=== PATIENT | male | born 1950 | race Caucasian/White ===

== ENCOUNTER 2016-08-27 10:01 | Day surgery (SDC) | payer MEDICARE, BC ==
--- NOTE | ~2016-08-27 | EGD ---
EGD REPORT [facility] [address] [address] NAME: MIGUELITO JONES : [birth year] STATUS : REG [facility]#: [id number] AGE: 66 ADM/REG DATE : 08/27/16 MR#: [id number] REPORT SERV DATE: 08/27/16 DICTATED BY: DATE: REPORT STATUS : Draft TRANSCRIBED BY: [employer] DATE: 08/27/16 Endoscopy Center Patient Name: Miguelito Jones Date of : 1950 Attending MD: DEIDRE ANDERSON MD Procedure Date No Time: 08/27/2016 Procedure: Upper GI endoscopy Indications: Iron deficiency anemia Referring MD: MARIA LUZ ALMANZAR MD Medicines: Monitored Anesthesia Care Complications: No immediate complications. Procedure: Pre-Anesthesia Assessment: - ASA Grade Assessment: III - A patient with severe systemic disease. After obtaining informed consent, the endoscope was passed under direct vision. Throughout the procedure, the patient's blood pressure, pulse, and oxygen saturations were monitored continuously. The GIF H190 [id number] was introduced through the mouth, and advanced to the third part of duodenum. The upper GI endoscopy was accomplished without difficulty. The patient tolerated the procedure well. Findings: The examined esophagus was mildly tortuous. There is no endoscopic evidence of Small's esophagus, areas of erosion, hiatus hernia, ulcerations or varices in the entire esophagus. Localized moderate inflammation characterized by erosions was found in the gastric antrum. Biopsies were taken with a cold forceps for histology. No other significant abnormalities were identified in a careful examination of the stomach. There is no endoscopic evidence of ulceration, varices or mass in the entire examined stomach. The examined duodenum was normal. Biopsies were taken with a cold forceps for histology. There is no endoscopic evidence of mucosal abnormalities, ulceration or angioectasia in the entire examined duodenum. The cardia and gastric fundus were normal on retroflexion. Impression: - Tortuous esophagus. - Acute gastritis. Biopsied. - Normal examined duodenum. Biopsied. Recommendation: - Patient has a contact number available for EGD REPORT [address] [address] NAME: MIGUELITO JONES : [birth year] STATUS : REG [facility]#: [id number] AGE: 66 ADM/REG DATE : 08/27/16 MR#: [id number] REPORT SERV DATE: 08/27/16 DICTATED BY: DATE: REPORT STATUS : Draft TRANSCRIBED BY: [employer] DATE: 08/27/16 emergencies. The signs and symptoms of potential delayed complications were discussed with the patient. Return to normal activities tomorrow. Written discharge instructions were provided to the patient. - Regular diet. - Discharge patient to home. - Use Protonix (pantoprazole) 40 mg PO daily for 8 weeks. - Avoid or minimize NSAID and Aspirin. If these must be continued, will likely need to continue pantoprazole. - Await pathology results. Procedure Code(s): --- Professional --- 18653, Esophagogastroduodenoscopy, flexible, transoral; with biopsy, single or multiple Diagnosis Code(s): --- Professional --- Q39.9, Congenital malformation of esophagus, unspecified K29.00, Acute gastritis without bleeding D50.9, Iron deficiency anemia, unspecified CPT copyright 2013 [employer]. All rights reserved. The codes documented in this report are preliminary and upon orthopedic coder review may be revised to meet current compliance requirements. DEIDRE ANDERSON MD 08/27/2016 12:20 PM This report has been signed electronically. Number of Addenda: 0 Note Initiated On: 08/27/2016 12:06 PM Scope Withdrawal Time 0 hours 0 minutes 0 seconds [address] [id number]
--- NOTE | ~2016-08-27 | EGD ---
EGD REPORT [facility] [address] [address] NAME: MIGUELITO JONES : [birth year] STATUS : REG [facility]#: [id number] AGE: 66 ADM/REG DATE : 08/27/16 MR#: [id number] REPORT SERV DATE: 08/27/16 DICTATED BY: DATE: REPORT STATUS : Draft [facility]: [facility] DATE: 08/27/16 [facility]oscopy [facility] Patient Name: Miguelito Jones Date of : 1950 Attending MD: DEIDRE ANDERSON MD Procedure Date No Time: 08/27/2016 Procedure: Colonoscopy Indications: Iron deficiency anemia Referring MD: MARIA LUZ ALMANZAR MD Medicines: Monitored Anesthesia Care Complications: No immediate complications. Procedure: Pre-Anesthesia Assessment: - ASA Grade Assessment: III - A patient with severe systemic disease. After I obtained informed consent, the scope was passed under direct vision. Throughout the procedure, the patient's blood pressure, pulse, and oxygen saturations were monitored continuously. The PCF [id number] was introduced through the anus and advanced to the cecum, identified by appendiceal orifice and ileocecal valve. The colonoscopy was performed without difficulty. The patient tolerated the procedure well. The quality of the bowel preparation was good. Findings: The perianal and digital rectal examinations were normal. Two sessile polyps were found in the ascending colon. The polyps were diminutive in size. These polyps were removed with a cold biopsy forceps. Resection and retrieval were complete. No other significant abnormalities were identified in a careful examination of the remainder of the colon. There is no endoscopic evidence of diverticula, mass, ulcerations or angioectasia in the entire colon. No additional abnormalities were found on retroflexion. Impression: - Two diminutive polyps in the ascending colon. Resected and retrieved. Recommendation: - Patient has a contact number available for emergencies. The signs and symptoms of potential delayed complications were discussed with the patient. Return to normal activities tomorrow. Written discharge instructions were provided to the patient. - Return to previous diet. - Discharge patient to home. EGD REPORT [facility] [address] [address] NAME: MIGUELITO JONES : [birth year] STATUS : REG [facility]#: [id number] AGE: 66 ADM/REG DATE : 08/27/16 MR#: [id number] REPORT SERV DATE: 08/27/16 DICTATED BY: DATE: REPORT STATUS : Draft TRANSCRIBED BY: [employer] DATE: 08/27/16 - Continue present medications. - Await pathology results. - Repeat colonoscopy in 5 years for surveillance based on pathology results. Procedure Code(s): --- Professional --- 37613, Colonoscopy, flexible, proximal to splenic flexure; with biopsy, single or multiple Diagnosis Code(s): --- Professional --- D12.2, Benign neoplasm of ascending colon D50.9, Iron deficiency anemia, unspecified CPT copyright 2013 [employer]. All rights reserved. The codes documented in this report are preliminary and upon roll clamp operator review may be revised to meet current compliance requirements. DEIDRE ANDERSON MD 08/27/2016 12:52 PM This report has been signed electronically. Number of Addenda: 0 Note Initiated On: 08/27/2016 12:02 PM Scope Withdrawal Time 0 hours 22 minutes 14 seconds [id number] [id number]
[~2016-08-27 10:01] MED LIST: AMBIEN CR12.5 MG PO; ASAB PO; C5; CALTRA600D PO; CYMBALTA30 PO; FISH OIL1200 MG PO; FISH-EPA1000 MG PO; GLUCCHONDR PO; HALF81 PO; LORT7 PO; LUTEIN PO; LUTEIN1 CAP OR; LUTEIN20 MG OR; MOBIC7.5 PO; MSCONTIN PO; MULTIPLE VIT PO; MULTIVIT/MIN PO; NEUR300 PO; NORCO1 TAB PO; OXYCOD PO; SUPER B COMP OR; TYLENOL PM PO; VASOTEC10 PO; VITC500 PO; ZOCOR10 PO; ZOCOR20 PO
== END 2016-08-27 23:59 | disposition home or self-care (01) ==
LOC: DMU 10:01
PROVIDERS: Internal Medicine Gastroenterology
PROC: 0DBK8ZZ Excision of Ascending Colon, Via Natural or Artificial Opening Endoscopic (ICD-10-PCS; 2016-08-27)
PROC: 0DB98ZX Excision of Duodenum, Via Natural or Artificial Opening Endoscopic, Diagnostic (ICD-10-PCS; principal; 2016-08-27 12:30)
PROC: 0DB68ZX Excision of Stomach, Via Natural or Artificial Opening Endoscopic, Diagnostic (ICD-10-PCS; 2016-08-27 12:30)
DX: D12.2 Benign neoplasm of ascending colon (principal); K29.50 Unspecified chronic gastritis without bleeding; I10 Essential (primary) hypertension; Q39.9 Congenital malformation of esophagus, unspecified; E78.00 Pure hypercholesterolemia, unspecified
CPT/HCPCS: 88305; 88342